=== PATIENT | male | born 2000 | race American Indian/Alaskan Native ===

== ENCOUNTER 2020-09-07 02:21 | Emergency (ER) | payer SELFPAY ==
[2020-09-07 03:22] VITALS: BP 119/78
[2020-09-07] MEDS ORDERED: LIDOCAINE-MPF (1%) 10 MG/1 ML VIAL 5 ML INFILTRATI ONE (03:43)
[2020-09-07] MEDS ORDERED: KETOROLAC 30 MG/1 ML INJ IM ONE (03:43)
[2020-09-07] MEDS ORDERED: PHENAZOPYRIDINE 200 MG TAB PO ONE (03:43)
[2020-09-07 04:17] LABS: Bacteria,Urine 1+ /HPF (Negative); Bilirubin,Urine NEG (Negative); Blood,Urine MOD (Negative); Color,Urine Yellow (Yellow); Mucus,Urine 2+ /HPF
[2020-09-07 04:19] LABS: WBC,Urine > 182.0 /HPF (0.0-6.0)
[2020-09-07 04:27] LABS: Basophils % (Auto) 0.3 % (0.0-1.8); Eosinophils # (Auto) 0.1 K/mm3 (0.0-0.4); Eosinophils % (Auto) 0.8 % (0.0-4.3); Hematocrit 41.5 % (35.5-45.6); Hemoglobin 13.5 gm/dl (11.8-15.2); Lymphocytes # (Auto) 1.3 K/mm3 (1.2-5.4); Lymphocytes % (Auto) 11.4 % (13.4-35.0); Mean Corpuscular HGB Conc 33 % (32-34); Mean Corpuscular Volume 74 fl (84-94); Monocytes # (Auto) 0.8 K/mm3 (0.0-0.8); Monocytes % (Auto) 7.6 % (0.0-7.3); Platelet Count 247 K/mm3 (140-440); Red Cell Distribution Width 14.2 % (13.2-15.2)
[2020-09-07 04:28] LABS: Alanine Aminotransferase 18 units/L (7-56); Albumin 4.6 g/dL (3.9-5); BUN/Creatinine Ratio 11; Blood Urea Nitrogen 12 mg/dL (9-20); Calcium 9.6 mg/dL (8.4-10.2); Hemolysis Index 4
--- NOTE | 2020-09-07 04:56 | Emergency Department Report ---
ED Male HPI - General Chief complaint: Abdominal Pain Stated complaint: LOWER,ABD PAIN Source: patient, family Mode of arrival: Ambulatory Limitations: No Limitations - History of Present Illness Initial comments: Patient is a 19-year-old -[place] male with a history of asthma who presents to the ED with complaint of acute onset persistent penile pain, dysuria, copious purulent discharge, low back pain, subjective fever and chills and lack of appetite for the last 1 week. Patient admits to having unprotected sexual intercourse with female sexual partners, the last time which was about 1 week ago. Patient denies testicular pain, abdominal pain, nausea, vomiting, diarrhea, sore throat, dizziness, syncope, chest pain or shortness of breath or traumatic injury. MD Complaint: penile discharge, dysuria, other (Low back pain, chills) -: Sudden, week(s) (1) Location: penis Radiation: other (lower back ) Severity: severe Severity scale (0 -10): 8 Quality: burning, sharp Consistency: constant Improves with: none Worsens with: urination discharge, blood in urine, dysuria, fever. denies: swelling, mass, rash, u rinary retention, nausea/vomiting, incontinence - Related Data Sexually active: Yes (Unprotected) Previous Rx's Medication Instructions Recorded Last Taken Type Doxycycline Hyclate 100 mg PO Q12H #28 tablet. 09/07/20 Unknown Rx Ibuprofen [Motrin] 600 mg PO Q8H PRN #30 tablet 09/07/20 Unknown Rx Phenazopyridine [Pyridium] 200 mg PO BID #20 tab 09/07/20 Unknown Rx Allergies Allergy/AdvReac Type Severity Reaction Status Date / Time No Known Allergies Allergy Unverified 09/07/20 03:27 ED Review of Systems ROS: Stated complaint: LOWER,ABD PAIN Other details as noted in HPI Constitutional: chills, fever, malaise Eyes: denies: eye pain, eye discharge, vision change ENT: denies: ear pain, throat pain Respiratory: denies: cough, shortness of breath, wheezing Cardiovascular: denies: chest pain, palpitations Endocrine: no symptoms reported Gastrointestinal: denies: abdominal pain, nausea, diarrhea Genitourinary: urgency, dysuria, frequency, hematuria, discharge. denies: testicular pain, testicular mass Musculoskeletal: back pain (Low back pain). denies: joint swelling, arthralgia Skin: denies: rash, lesions Neurological: denies: headache, weakness, paresthesias Psychiatric: denies: anxiety, depression Hematological/Lymphatic: denies: easy bleeding, easy bruising ED Past Medical Hx - Past Medical History Previous Medical History?: Yes Hx Asthma: Yes - Surgical History Past Surgical History?: No - Social History Smoking Status: Current Every Day Smoker Substance Use Type: None - Medications Home Medications: Home Medications Medication Instructions Recorded Confirmed Last Taken Type Doxycycline Hyclate 100 mg PO Q12H #28 tablet.dr 09/07/20 Unknown Rx Ibuprofen [Motrin] 600 mg PO Q8H PRN #30 tablet 09/07/20 Unknown Rx Phenazopyridine [Pyridium] 200 mg PO BID #20 tab 09/07/20 Unknown Rx ED Physical Exam - General Limitations: No Limitations General appearance: alert, in no apparent distress - Head Head exam: Present: atraumatic, normocephalic, normal inspection - Eye Eye exam: Present: normal appearance, PERRL, EOMI Pupils: Present: normal accommodation - ENT ENT exam: Present: normal exam, normal orophraynx, mucous membranes moist, TM's normal bilaterally, normal external ear exam - Neck Neck exam: Present: normal inspection, full ROM - Respiratory Respiratory exam: Present: normal lung sounds bilaterally. Absent: respiratory distress, wheezes, rales, rhonchi, chest wall tenderness, accessory muscle use, decreased breath sounds, prolonged expiratory - Cardiovascular Cardiovascular Exam: Present: regular rate, normal rhythm, normal heart sounds. Absent: systolic murmur, diastolic murmur, rubs, gallop - GI/Abdominal GI/Abdominal exam: Present: soft, normal bowel sounds. Absent: tenderness, guarding, rebound, hyperactive bowel sounds, hypoactive bowel sounds, organomegaly - exam: Present: urethral discharge (Copious thick purulent malodorous penile discharge), circumcision. 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 Absent: tenderness, CVA tenderness (R), CVA tenderness (L), muscle spasm, paraspinal tenderness, vertebral tenderness - Neurological Exam Neurological exam: Present: alert, oriented X3, CN II-XII intact, normal gait, reflexes normal - Psychiatric Psychiatric exam: Present: normal affect, normal mood, anxious - Skin Skin exam: Present: warm, dry, intact, normal color. Absent: rash ED Course Vital Signs 09/07/20 09/07/20 03:19 04:03 Temperature 98.9 F Pulse Rate 92 H Respiratory 16 18 Rate Blood Pressure 119/78 O2 Sat by Pulse 100 Oximetry ED Medical Decision Making - Lab Data Result diagrams: 09/07/20 03:33 09/07/20 03:33 - Medical Decision Making This is a 19-year-old -[place] male with a history of asthma who presents to the ED with complaint of acute onset persistent penile pain, dysuria, copious purulent discharge, low back pain, subjective fever and chills and lack of appetite for the last 1 week. Patient admits to having unprotected sexual intercourse with female sexual partners, the last time which was about 1 week ago. In the ED, patient is alert and oriented x3 and is not in any distre ss with normal vital signs. Lab test results were reviewed and showed acute leukocytosis of 11,100 and urinalysis showed significant urinary tract infection consistent with STD. Patient was treated in the ED empirically for gonorrhea with Rocephin 1 g intramuscular injection, also treated for pain in the ED and given pyridium for dysuria. On reevaluation, patient is hemodynamically stable, pain is well controlled with medications. Patient was discharged home on pain medications and antibiotics for suspected gonorrhea and chlamydia treatment. Patient was advised to follow-up with the [facility] department for further evaluation and STD evaluation including syphilis and HIV. Patient was also advised of ensure that his sexual partners also get evaluated and treated at the [facility] department. Patient was advised return to the ED immediately if symptoms get worse. - Differential Diagnosis UTI; gonorrhea/chlamydia urethritis; STD; Critical care attestation.: If time is entered above; I have spent that time in minutes in the direct care of this critically ill patient, excluding procedure time. ED Disposition Clinical Impression: Urethritis, STD (sexually transmitted disease), Dysuria, Gonococcal urethritis in male Disposition: DC-01 TO HOME OR SELFCARE Is pt being admited?: No Does the pt Need Aspirin: No Condition: Stable Instructions: Chlamydia, Male, Dysuria, Urethritis, Adult, Gonorrhea, Preventing Sexually Transmitted Infections, Adult Additional Instructions: Your symptoms are likely due to gonorrhea and/or chlamydial urethritis due to unprotected sexual intercourse with infected sexual partners. Therefore take medications with food, drink plenty of fluids and follow-up with the [facility] for further STD testing including HIV and syphilis. Ensure that your sexual partner also gets treated for the same at the [facility]. Return to the ED immediately if symptoms get worse. Prescriptions: Doxycycline Hyclate 100 mg PO Q12H #28 tablet. Ibuprofen [Motrin] 600 mg PO Q8H PRN #30 tablet PRN Reason: Pain Phenazopyridine [Pyridium] 200 mg PO BID #20 tab Referrals: [facility] Depart [Outside] - 3-5 Days Forms: STI Treatment and Prevention Time of Disposition: 04:54 Print Language: OCCITAN
== END 2020-09-07 05:25 | disposition home or self-care (01) ==
LOC: ED 02:21
DX: N34.2 Other urethritis (principal); A64 Unspecified sexually transmitted disease; A54.01 Gonococcal cystitis and urethritis, unspecified; R30.0 Dysuria; F17.200 Nicotine dependence, unspecified, uncomplicated; J45.909 Unspecified asthma, uncomplicated; Z79.899 Other long term (current) drug therapy
CPT/HCPCS: 36415; 80053; 81001; 85025; 96372; 99283; J0696; J1885